=== PATIENT | female | born 1975 | race Caucasian/White ===

== ENCOUNTER 2023-07-10 07:28 | Observation (INO) ==
[~2023-07-10 07:28] MED LIST: Buffered Lidocaine 1% SYRIN 1 ml INTRADERM ONE; Bupivacaine 0.5% SDV PF 30ML VIAL ONE; Famotidine IV 10 MG/ML 2 ml VIAL (20 mg) IV ONE; Gentamicin ADULT 310 MG in NS 0.9% 100 ml BAG 100 ML IVPB ONE; Lactated Ringers 1000 ml BAG 1,000 ML IV SCH; Naloxone 0.4 mg VIAL 0.4 mg/ml 1 ml VIAL IV PRN; Ondansetron 4 mg VIAL 2 MG/ML 2 ml VIAL IV PRN; fentaNYL 100 mcg/2 ml 50 MCG/ML VIAL IV PRN; oxyCODONE/Acetamin 5/325 mg TAB PO PRN
[2023-07-10] MEDS ORDERED: fentaNYL 250 mcg/5 ml 50 MCG/ML 5 ml VIAL (250 MCG) ONE (07:56)
[2023-07-10] MEDS ORDERED: Midazolam 2 mg/2 ml VIAL 1 mg/ml 2 ml VIAL (2 mg) ONE (07:56)
[2023-07-10] MEDS ORDERED: Propofol 10 MG/ML 20 ML BTL ONE (07:56)
[2023-07-10] MEDS ORDERED: Rocuronium 50 mg VIAL 10 mg/ml 5 ml VIAL (50 mg) ONE ×2 (07:56→09:46)
[2023-07-10] MEDS ORDERED: Lidocaine 2% PF 5 ML VIAL ONE (07:56)
[2023-07-10] MEDS ORDERED: Scopolamine 1 mg/72hr PATCH ONE (07:59)
[2023-07-10] MEDS ORDERED: Ondansetron 4 mg VIAL 2 MG/ML 2 ml VIAL ONE ×2 (08:02→12:04)
[2023-07-10] MEDS ORDERED: Acetaminophen IV 1 GM/100ML 1,000 MG/100 ML BAG IV ONE (08:02)
[2023-07-10] MEDS ORDERED: Buffered Lidocaine 1% SYRIN 1 ml ONE (08:02)
[2023-07-10] MEDS ORDERED: Dexamethasone IV 4 MG/ML VIAL 1 ml VIAL ONE (08:02)
[2023-07-10] MEDS ORDERED: Clindamycin 900 MG/50 **NS BAG 900 MG/50 ML BAG ONE (08:18)
[2023-07-10] MEDS ORDERED: GENTAMICIN ADULT IVPB ONE (09:00)
[2023-07-10] MEDS ORDERED: NS 0.9% IVPB ONE (09:00)
[2023-07-10] MEDS ORDERED: oxyCODONE/Acetamin 5/325 mg TAB PO PRN (13:59)
[2023-07-10] MEDS ORDERED: Lactated Ringers 1000 ml BAG 1,000 ML IV SCH (14:00)
[2023-07-10 15:08] LABS: Rapid COVID-19 Molecular Undetected (Undetected)
[2023-07-10] MEDS: Clindamycin 300 MG/D5W BAG 300 MG/50 ML BAG IV SCH ×2 (15:39→15:40)
[2023-07-10] MEDS: Ondansetron 4 mg VIAL 2 MG/ML 2 ml VIAL IV PRN (19:18)
[2023-07-11 06:05] VITALS: BP 135/74
[2023-07-11 07:18] LABS: ABS Lymphocytes 1.4 10^3/uL (1.0-4.8); ABS Neutrophils 10.1 10^3/uL (1.5-7.6); Eosinophil % 0.2 %; Hematocrit 31.6 % (35-45); Hemoglobin 10.8 g/dL (11.5-14.3); Lymphocyte % 11.2 %; Mean Corpuscular Hemoglobin 30.8 pg (27-33); Mean Corpuscular Hgb Conc 34.2 g/dL (31-36); Mean Corpuscular Volume 89.9 fL (80-97); Mean Platelet Volume 7.9 fL (7.5-11.2); Platelet Count 238 10^3/uL (150-450); Red Blood Count 3.52 10^6/uL (3.63-4.92); Red Cell Distribution Width 18.1 % (12-17); White Blood Count 12.6 10^3/uL (3.8-11.8)
[2023-07-11] MEDS: Ondansetron 4 mg VIAL 2 MG/ML 2 ml VIAL IV PRN (08:01)
== END 2023-07-11 10:23 | disposition home or self-care (01) ==
LOC: OR 07:28 → SSU 07:28
PROVIDERS: ADMIT Obstetrics & Gynecology; ATTEND Obstetrics & Gynecology